=== PATIENT | female | born 1970 ===

== ENCOUNTER 2017-09-23 08:00 | Outpatient (CLI) | payer OTHER, SELFPAY | END 2017-09-23 08:01 | disposition home or self-care (01) | LOC: BICULT 08:00 | PROVIDERS: ATTEND Internal Medicine | DX: R92.8 Other abnormal and inconclusive findings on diagnostic imaging of breast (principal); Z80.3 Family history of malignant neoplasm of breast | CPT/HCPCS: 77066; G0279 ==